=== PATIENT | female | born 1950 | race African-American/Black ===

== ENCOUNTER 2017-08-01 13:41 | Emergency (ER) | payer OTHER, MEDICAID ==
[~2017-08-01] VITALS: Ht 170.2 cm; Wt 74.8 kg
[2017-08-01 14:02] VITALS: Ht 170.2 cm; Wt 74.8 kg
[2017-08-01 15:30] LABS: BASOPHIL % 0.5 % (0-2); PLATELET COUNT 352 x10^3mcL (130-400)
[2017-08-01 15:38] LABS: CALCIUM 9.5 mg/dL (8.5-10.1); CARBON DIOXIDE 29.2 mmol/L (21-32); CHLORIDE SERUM 101 mmol/L (98-107); GFR1 59 mL/min; GLUCOSE SERUM 106 mg/dL (74-106); POTASSIUM SERUM 3.5 mmol/L (3.5-5.1); SODIUM SERUM 134 mmol/L (136-145)
[2017-08-01 15:40] LABS: RED CELL DISTRIBUTION WIDTH 16.7 % (11.5-14.5)
[2017-08-01 15:49] LABS: ALKALINE PHOSPHATASE 77 U/L (46-116); ALT/SGPT 29 U/L (14-59); AST/SGOT 33 U/L (15-37); BILIRUBIN TOTAL 0.2 mg/dL (0.20-1.00); TOTAL PROTEIN, SERUM 7.6 g/dL (6.4-8.2)
[2017-08-01 15:50] LABS: ALBUMIN 3.1 g/dL (3.4-5.0)
[2017-08-01 15:57] LABS: microscopic required? YES; urine erythrocyte TRACE (NEGATIVE)
[2017-08-01 16:06] LABS: AMPHETAMINE QUAL UR NONE DETECTED (NEG <=1000)
[2017-08-01 22:54] VITALS: BP 130/72
== END 2017-08-01 22:54 ==
LOC: ED 13:41
PROVIDERS: Emergency Medicine
DX: F23 Brief psychotic disorder (principal); I10 Essential (primary) hypertension; F31.9 Bipolar disorder, unspecified; Z86.59 Personal history of other mental and behavioral disorders
CPT/HCPCS: G0480; J2060; Q0092